=== PATIENT | female | born 1930 | race Hispanic/Latino ===

== ENCOUNTER 2016-11-30 06:59 | Day surgery (SDC) | payer MEDICARE, OTHER ==
[2016-11-29 13:03] VITALS: BMI 26.2
[2016-11-30 07:49] LABS: BASO # 0.03 K/mm3 (0.0-2.0); BASO % 0.6 % (0.0-3.0); EOS # 0.2 (0.0-0.7); EOS % 4.2 % (1.5-5.0); GRAN # 2.43 (1.4-6.5); GRAN % 46.7 % (50.0-68.0); HEMATOCRIT 37.1 % (36.0-48.0); LYMPH # 2.1 (1.2-3.4); LYMPH % 39.3 % (22.0-35.0); MEAN CELL VOLUME 86.7 fl (80.0-105.0); MEAN CORPUSCULAR HEMOGLOBIN 29.4 pg (25.0-35.0); MEAN PLATELET VOLUME 10.2 fl (7.0-11.0); MONO # 0.5 (0.1-0.6); MONO % 9.2 % (1.0-6.0); RED CELL DISTRIBUTION WIDTH 13.5 % (11.5-14.5); WHITE BLOOD COUNT 5.2 10^3/ul (4.5-11.0)
[2016-11-30 07:50] VITALS: RESP 20
[2016-11-30 07:54] LABS: INR 0.95 (0.93-1.08); PARTIAL THROMBOPLASTIN TIME 26.6 Seconds (23.7-30.8)
[2016-11-30 07:57] LABS: BLOOD UREA NITROGEN 17 mg/dL (7-21); CALCIUM 10.2 mg/dL (8.4-10.5); CARBON DIOXIDE 25 mmol/L (21-33); CHLORIDE 105 mmol/L (98-107); CHOLESTEROL 188 mg/dL (130-200); GFR AFRICAN-AMERICAN > 60; GLUCOSE,RANDOM 102 mg/dL (70-110); POTASSIUM 4.1 mmol/L (3.6-5.0); SODIUM 141 mmol/L (132-148)
[2016-11-30] MEDS ORDERED: Iohexol 350mgl/ml 50 ML ONE (08:45)
[2016-11-30] MEDS ORDERED: Phenylephrine 10 mg/ml Inj ONE (08:45)
[2016-11-30] MEDS ORDERED: Iohexol 350 MG/100 ML VIAL ONE (08:45)
[2016-11-30] MEDS ORDERED: Lidocaine 2% Inj (20ml) ONE ×2 (08:45→09:19)
[2016-11-30] MEDS ORDERED: Heparin 2,000 ML IV ONE (08:46)
[2016-11-30] MEDS ORDERED: Midazolam 2 MG/2 ML VIAL ONE ×2 (09:02→09:21)
[2016-11-30] MEDS ORDERED: Sodium Chloride 0.9% 1,000 ML IV SCH (09:45)
[2016-11-30 09:56] VITALS: TEMP 97.9
[2016-11-30 11:43] VITALS: O2SAT 98
[2016-11-30 13:56] VITALS: BP 158/69; PULSE 57
--- NOTE | 2016-11-30 15:57 | CARDCATH ---
PROCEDURE DATE: 11/30/2016 HISTORY: The patient is a 86-year-old woman who presents with exertional dyspnea. Noninvasive testing was suggestive of aortic valve disease with heavy calcification in coronary arteries as well as including a stress test that revealed dyspnea on exertion. Because of this, cardiac catheterization was recommended. PROCEDURE: 1. Left heart catheterization with coronary angiography, supra-aortic valvular injection and left ventriculogram. 2. The right femoral artery was cannulated with 6-[place] sheath. There were no complications. 3. Findings on catheterization including hemodynamic data, which revealed no aortic valvular gradient across the aortic valve. 4. LVEDP was 16 mmHg. 5. Her supra-aortic valvular injection revealed no aortic insufficiency. 6. LV function was measured in the RUIZ projection. The ejection fraction was normal with an EF of 60-65%. 7. Her coronary anatomy revealed a heavily calcified coronary arteries. 8. The RCA was a dominant vessel and was revealed intimal irregularities without significant stenoses. 9. The left main artery was unremarkable. 10. The LAD and diagonal vessels revealed diffuse atherosclerosis. There is a 70% stenosis in the ostium/proximal portion of the first diagonal vessel which was a small vessel. 11. The circumflex artery revealed intimal irregularities without significant stenoses. 12. Angio-Seal was used to close the femoral artery site. The patient tolerated the procedure well. 13. In summary, the procedure revealed single-vessel CAD of a 70-80% stenoses in the proximal portion of the small first diagonal vessel. 14. The coronary arteries heavily calcified. 15. No significant aortic valve gradient. 16. No aortic insufficiency. 17. Normal LV function. Given these findings, the patient's treatment will be medical, which includes a baby aspirin. No intervention is necessary at this time. Chacho Morrell MD
== END 2016-11-30 15:20 | disposition home or self-care (01) ==
LOC: CATH 06:59
PROVIDERS: ATTEND Internal Medicine Cardiovascular Disease
DX: I25.10 Atherosclerotic heart disease of native coronary artery without angina pectoris (principal); E78.00 Pure hypercholesterolemia, unspecified; R06.09 Other forms of dyspnea
CPT/HCPCS: 36415; 80048; 80061; 85025; 85610; 85730; 86850; 86900; 93458; 93567; 99152; C1760; C1769 ×2; C2629; J1644; J2250; J3010; J7030; J7040; Q9967 ×2

== ENCOUNTER 2017-02-04 07:42 | Day surgery (SDC) | payer MEDICARE, OTHER ==
[2017-01-31 14:39] VITALS: BMI 30.2
[2017-02-04 08:33] VITALS: RESP 18; TEMP 98.7
[2017-02-04] MEDS ORDERED: Lidocaine 2% Inj (20ml) ONE (08:37)
[2017-02-04] MEDS ORDERED: Midazolam 2 MG/2 ML VIAL ONE ×2 (08:38→10:15)
[2017-02-04] MEDS ORDERED: Iodixanol 320 MG/ML 200 ML BOTTLE IV ONE (08:39)
[2017-02-04] MEDS ORDERED: Heparin 2,000 ML IV ONE (08:39)
[2017-02-04 08:40] LABS: BLOOD UREA NITROGEN 20 mg/dL (7-21); CALCIUM 10.8 mg/dL (8.4-10.5); CARBON DIOXIDE 23 mmol/L (21-33); CHLORIDE 109 mmol/L (98-107); GFR AFRICAN-AMERICAN > 60; GLUCOSE,RANDOM 99 mg/dL (70-110); POTASSIUM 4.2 mmol/L (3.6-5.0); SODIUM 143 mmol/L (132-148)
[2017-02-04 08:45] LABS: BASO # 0.04 K/mm3 (0.0-2.0); BASO % 0.6 % (0.0-3.0); EOS # 0.3 (0.0-0.7); EOS % 4.4 % (1.5-5.0); GRAN # 3.24 (1.4-6.5); GRAN % 51.4 % (50.0-68.0); HEMATOCRIT 39.8 % (36.0-48.0); INR 0.92 (0.93-1.08); LYMPH # 2.3 (1.2-3.4); LYMPH % 36.3 % (22.0-35.0); MEAN CELL VOLUME 88.1 fl (80.0-105.0); MEAN CORPUSCULAR HEMOGLOBIN 29.9 pg (25.0-35.0); MEAN CORPUSCULAR HGB CONC 33.9 g/dl (31.0-37.0); MEAN PLATELET VOLUME 10.8 fl (7.0-11.0); MONO # 0.5 (0.1-0.6); MONO % 7.3 % (1.0-6.0); PARTIAL THROMBOPLASTIN TIME 24.7 Seconds (25.1-36.5); RED CELL DISTRIBUTION WIDTH 13.8 % (11.5-14.5); WHITE BLOOD COUNT 6.3 10^3/ul (4.5-11.0)
[2017-02-04] MEDS ORDERED: Sodium Chloride 0.9% 1,000 ML IV SCH (10:30)
[2017-02-04 13:20] VITALS: O2SAT 99
[2017-02-04 13:58] VITALS: BP 151/72; PULSE 62
--- NOTE | 2017-02-04 14:41 | CARDCATH ---
PROCEDURE DATE: 02/04/2017 HISTORY: The patient is an 86-year-old woman who presents with dyspnea. Her cardiac evaluation has included cardiac catheterization as well as coronary arteriography which revealed no significant critical disease. Her LV function is normal. Because of the report of pulmonary hypertension, I was asked by the curing press operator to do a right heart catheterization to measure her right heart pressures. I performed moderate sedation which includes the presence of an independent trained observer that assisted in monitoring the patients level of consciousness and physiologic status. After administration of versed and fentyl, mu intraservice time was 15 minutes. PROCEDURE: Right heart catheterization was performed. The right femoral vein was cannulated with a 7-[place] sheath. There were no complications. The findings on catheterization revealed a right atrial mean pressure of 7 mmHg. RV pressure was 36/7 mmHg. PA pressures were 35/18 mmHg. Mean pulmonary capillary wedge pressure was 12 mmHg. There was no gradient across the pulmonic valve. The patient tolerated the procedure well. Manual compression was used to close the right femoral vein site. In summary, the procedure revealed mild pulmonary hypertension. There was no gradient across the pulmonic valve. Chacho Morrell MD [facility]
--- NOTE | 2017-02-04 22:06 | CARD ---
APPROVED REPORT EKG Measurement Heart [id number] <Conclusion> Sinus bradycardia Otherwise normal ECG
== END 2017-02-04 15:00 | disposition home or self-care (01) ==
LOC: CATH 07:42
PROVIDERS: ATTEND Internal Medicine Cardiovascular Disease
DX: I27.20 Pulmonary hypertension, unspecified (principal); R06.00 Dyspnea, unspecified
CPT/HCPCS: 36415; 80048; 85025; 85610; 85730; 86850; 86900; 93005; 93451; 99152; C1894; J1644; J2250; J3010; J7030; J7040